=== PATIENT | male | born 1950 | race Caucasian/White ===

== ENCOUNTER 2020-07-06 05:47 | Day surgery (SDC) | payer OTHER ==
[2020-07-05 11:28] VITALS: BMI 29.8
[2020-07-06] MEDS ORDERED: AFRIN NASAL MIST 15 ML BOT ONE ×2 (06:10→06:29)
[2020-07-06 06:26] LABS: Hemoglobin 16.8 g/dL (14.0-18.0)
[2020-07-06] MEDS ORDERED: Lidocaine 1% w/Epinephrine 1:100K 20 ML VIAL ONE (06:29)
[2020-07-06] MEDS ORDERED: Bacitracin Zinc Ointment 30 gm TUBE ONE (06:29)
[2020-07-06] MEDS ORDERED: Fentanyl 100 MCG/2 ML VIAL ONE (06:46)
[2020-07-06 06:47] LABS: Anion Gap 12 mmol/L (10-20); BUN (Urea Nitrogen) 18 mg/dL (8.4-25.7); Calc. Creatinine Clearance 98 mL/min (70-130); Calcium 9.2 mg/dL (7.8-10.44); Carbon Dioxide 28 mmol/L (23-31); Chloride 103 mmol/L (98-107); Glucose 99 mg/dL (83-110); Potassium 3.8 mmol/L (3.5-5.1); Sodium 139 mmol/L (136-145)
[2020-07-06] MEDS ORDERED: Lidocaine 4% Topical Sol 50 ML BOT ONE (06:58)
[2020-07-06] MEDS ORDERED: Ondansetron PF 4 MG/2 ML Vial ONE (07:29)
[2020-07-06] MEDS ORDERED: Rocuronium Bromide 10 MG/ML (10ML VIAL) ONE (07:29)
[2020-07-06] MEDS ORDERED: Glycopyrrolate 0.2 MG/ML 5 ML SYRINGE ONE (07:29)
[2020-07-06] MEDS ORDERED: PHENYLEPHRINE-NS 100 MCG/ML 10 ML SYRINGE ONE (07:29)
[2020-07-06] MEDS ORDERED: Dexamethasone 20 MG/5 ML VIAL ONE (07:29)
[2020-07-06] MEDS ORDERED: PROPOFOL 200 MG/20 ML VIAL ONE (07:29)
[2020-07-06] MEDS ORDERED: Lidocaine 1% PF 5 ML VIAL ONE (07:29)
[2020-07-06] MEDS ORDERED: ePHEDrine Sulfate 50 MG/10 ML VIAL ONE (07:29)
== END 2020-07-06 10:04 | disposition home or self-care (01) ==
LOC: SDC 05:47
PROVIDERS: ATTEND Specialist
PROC: 09BM8ZZ Excision of Nasal Septum, Via Natural or Artificial Opening Endoscopic (ICD-10-PCS; principal; 2020-07-06)
PROC: 09BL8ZZ Excision of Nasal Turbinate, Via Natural or Artificial Opening Endoscopic (ICD-10-PCS; principal; 2020-07-06)
DX: J34.2 Deviated nasal septum (principal); J34.3 Hypertrophy of nasal turbinates; I10 Essential (primary) hypertension; E03.9 Hypothyroidism, unspecified; F17.210 Nicotine dependence, cigarettes, uncomplicated; Z79.899 Other long term (current) drug therapy
CPT/HCPCS: 36415; 80048; 85014; 85018; 93005; 93010; J1100; J2405; J2704; J3010